=== PATIENT | female | born 1980 | race Caucasian/White ===

== ENCOUNTER 2016-08-06 | Emergency (ER) | payer MEDICAID | END 2016-08-06 23:19 | disposition left against medical advice (07) | DX: Z53.21 Procedure and treatment not carried out due to patient leaving prior to being seen by health care provider (principal) ==

== ENCOUNTER 2017-07-04 15:53 | Emergency (ER) | payer MEDICAID ==
--- NOTE | 2017-07-04 17:11 | ED Physician Documentation ---
PD HPI URI - Stated complaint Stated Complaint: FLU SYMPTOMS - Chief complaint Chief Complaint: Resp - History obtained from History obtained from: Patient - History of Present Illness Timing - onset: How many days ago (2) Timing duration: Days (2) Timing details: Abrupt onset, Still present Associated symptoms: Fever, Chills, Sweats, Nasal congestion, Sore throat, Dry cough, NVD (nausea and loose stool, no regular vomiting.) Contributing factors: Sick contact (works at [employer] at [employer]) Similar symptoms before: Has not had sx before Recently seen: Not recently seen Review of Systems Constitutional: reports: Fever, Chills, Myalgias, Fatigue Nose: reports: Congestion, Sinus pressure / pain Throat: reports: Sore throat Cardiac: denies: Chest pain / pressure, Palpitations Respiratory: reports: Cough. denies: Dyspnea GI: reports: Nausea, Diarrhea. denies: Abdominal Pain, Vomiting : denies: Dysuria, Frequency Neurologic: reports: Generalized weakness. 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 - Present Medications Home Medications: Ambulatory Orders Medication Instructions Recorded Confirmed Albuterol Sulf [Ventolin Hfa 1 - 2 puffs INH Q4HR PRN #1 inhaler 07/04/17 Inhaler] Dexamethasone [Decadron] 4 mg PO DAILY #5 tablet 07/04/17 HYDROcod/ACETAM 5/325 [[place] 5/325] 1 tab PO Q6H PRN #12 tablet 07/04/17 Ondansetron Odt [Zofran] 4 mg TL Q6H PRN #15 tablet 07/04/17 Oseltamivir [Tamiflu] 75 mg PO BID #10 capsule 07/04/17 - Allergies Allergies/Adverse Reactions: Allergies Allergy/AdvReac Type Severity Reaction Status Date / Time No Known Drug Allergies Allergy Verified 07/04/17 16:04 - Social History Does the pt smoke?: Yes Smoking Status: Current every day smoker Does the pt drink ETOH?: No Does the pt have substance abuse?: No - Immunizations Immunizations are current?: No Immunizations: TDAP >10years/unknown - POLST Patient has POLST: No PD ED PE NORMAL - Vitals Vital signs reviewed: Yes - General General: Alert and oriented X 3, No acute distress, Well developed/nourished - HEENT HEENT: Ears normal, Pharynx benign. No: Moist mucous membranes - Neck Neck: Supple, no meningeal sign, No adenopathy - Cardiac Cardiac: RRR (but tachycardic), No murmur - Respiratory Respiratory: Clear bilaterally - Abdomen Abdomen: Normal bowel sounds, Soft - Female Female : Deferred - Rectal Rectal: Deferred - Back Back: No CVA TTP - Derm Derm: Normal color, Warm and dry, No rash - Neuro Neuro: Alert and oriented X 3, No motor deficit, Normal speech Results - Vitals Vitals: Oxygen O2 Source Room air - Labs Labs: Laboratory Tests 07/04/17 16:05 Influenza A (Rapid) Negative Influenza B (Rapid) Negative Influenza Types A,B Ag - PD MEDICAL DECISION MAKING - ED course Complexity details: re-evaluated patient (feeling much better with IV fluids and meds. Still general aches. ), considered differential (sounds like flu. 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 Sick for just under 2 days. Discussed Tamiflu and she opted for it. ), d/w patient Departure - Departure Disposition: 01 Home, Self Care Clinical Impression: Flu-like symptoms Condition: Stable Record reviewed to determine appropriate education?: Yes Instructions: ED Viral Syndrome Prescriptions: Albuterol Sulf [Ventolin Hfa Inhaler] 1 - 2 puffs INH Q4HR PRN #1 inhaler PRN Reason: Shortness Of Air/Wheezing Dexamethasone [Decadron] 4 mg PO DAILY #5 tablet HYDROcod/ACETAM 5/325 [[place] 5/325] 1 tab PO Q6H PRN #12 tablet PRN Reason: Pain Ondansetron Odt [Zofran] 4 mg TL Q6H PRN #15 tablet PRN Reason: Nausea / Vomiting Oseltamivir [Tamiflu] 75 mg PO BID #10 capsule Comments: Small frequent fluids. Food as tolerated. Ondansetron if needed for nausea every 6 hours. Tylenol if needed for fevers and pains. Add hydrocodone if needed for worse pain or cough. Decadron daily for 5 days for inflammation. Use albuterol inhaler 2 puffs 4 times a day for the next 7-10 days for the cough and breathing. Rest at home off work for the next several days. Recheck if not improving over the next 4-5 days. Forms: Activity restrictions Discharge Date/Time: 07/04/17 21:03
[2017-07-04] MEDS ORDERED: ONDANSETRON 4 MG/2 ML VIAL IVP STA (17:33)
[2017-07-04] MEDS ORDERED: KETOROLAC 60 MG/2 ML VIAL IVP STA (17:33)
[2017-07-04] MEDS ORDERED: SODIUM CHLORIDE 0.9% 1,000 ML IV ONE ×2 (17:33→17:35)
[2017-07-04] MEDS ORDERED: DEXAMETHASONE 10 MG/ML VIAL IVP STA (17:34)
[2017-07-04] MEDS ORDERED: BENZONATATE 100 MG CAPSULE PO STA (17:34)
[2017-07-04] MEDS ORDERED: ALBUTEROL NEB 2.5 MG/3 ML INH STA (17:54)
[2017-07-04] MEDS ORDERED: ACETAMINOPHEN 325 MG TABLET PO STA (18:42)
[2017-07-04] MEDS ORDERED: HYDROcod/ACET 5/325 Prepack 6 PO STA (20:23)
[2017-07-04] MEDS ORDERED: MORPHINE 2 MG/ML CARPUJECT IVP STA (20:23)
[2017-07-04] MEDS ORDERED: OSELTAMIVIR 75 MG CAPSULE PO STA (20:24)
[2017-07-04] MEDS ORDERED: ONDANSETRON ODT 4 MG Prepack 2 TL PRN (20:24)
[2017-07-04 21:03] VITALS: BP 106/66
== END 2017-07-04 21:03 | disposition home or self-care (01) ==
LOC: ED 15:53
DX: R50.9 Fever, unspecified (principal); R09.81 Nasal congestion; J02.9 Acute pharyngitis, unspecified; F17.200 Nicotine dependence, unspecified, uncomplicated; R11.2 Nausea with vomiting, unspecified; R19.7 Diarrhea, unspecified; R05 Cough
CPT/HCPCS: 36415; 87275; 87276; 94640; 96361; 96374; 96375; 99283; A9270; J7613

== ENCOUNTER 2017-09-13 22:38 | Emergency (ER) | payer SELFPAY ==
[2017-09-13 23:00] LABS: BASOPHILS # (AUTO) 0.1 10^3/uL (0.0-0.1); EOSINOPHILS # (AUTO) 0.4 10^3/uL (0.0-0.7); EOSINOPHILS % (AUTO) 4.1 %; HGB - HEMOGLOBIN 13.9 g/dL (12.0-16.0); LYMPHOCYTES % (AUTO) 32.7 %; MEAN CORPUSCULAR HEMOGLOBIN 29.1 pg (27.0-31.0); MEAN CORPUSCULAR HGB CONC 34.1 g/dL (32.0-36.0); MEAN CORPUSCULAR VOLUME 85.4 fL (81.0-99.0); MEAN PLATELET VOLUME 6.9 fL (7.9-10.8); MONOCYTES # (AUTO) 0.5 10^3/uL (0.0-1.0); MONOCYTES % (AUTO) 5.8 %; NEUTROPHILS # (AUTO) 5.2 10^3/uL (1.5-6.6); NEUTROPHILS % (AUTO) 56.4 %; PLT - PLATELET COUNT 281 10^3/uL (130-450); RED BLOOD COUNT 4.76 10^6/uL (4.20-5.40); RED CELL DISTRIBUTION WIDTH 13.4 % (12.0-15.0); WHITE BLOOD COUNT 9.2 x10^3/uL (4.8-10.8)
[2017-09-13 23:14] LABS: ALBUMIN 4.2 g/dL (3.2-5.5); ALBUMIN/GLOBULIN RATIO 1.2 (1.0-2.2); BILIRUBIN,TOTAL 0.5 mg/dL (0.2-1.0); CALCIUM 9.3 mg/dL (8.5-10.3); CREATININE 0.6 mg/dL (0.4-1.0); TOTAL PROTEIN 7.6 g/dL (6.7-8.2)
--- NOTE | 2017-09-13 23:21 | XRAY Preliminary Report ---
Exam: XR CHEST 2 VIEW X-RAY IMPRESSION: 1. Patchy bilateral lower lobe opacities are noted. Differential includes atelectasis or infiltrates. 2. No effusions or pneumothorax. [facility] SITE ID: [id number]
[2017-09-13] MEDS ORDERED: oxyCOD/ACETAMIN 5 MG/325 MG TABLET PO STA (23:42)
[2017-09-13] MEDS ORDERED: AZITHROMYCIN 250 MG TABLET PO STA (23:42)
--- NOTE | 2017-09-13 23:42 | ED Physician Documentation ---
PD HPI CHEST PAIN - Stated complaint Stated Complaint: SOA/BACK PX - Chief complaint Chief Complaint: Cardiac - History obtained from History obtained from: Patient - History of Present Illness Timing - duration: Months (Intermittent for more than a month.) Timing - details: Intermittant Location: Right chest, Upper back Worsened by: Inspiration Associated symptoms: Shortness of air, Cough Similar symptoms before: Has not had sx before - Additional information Additional information: The patient is a 37-year-old female who complains of right chest and back pain that has been waxing and waning for the past month or more. It is worse with inspiration, and improves when she is lying supine. She reports nonproductive cough and shortness of breath. She denies fever. Her symptoms became worse today, prompting her emergency department visit. She denies history of similar symptoms in the past. She does smoke cigarettes. Review of Systems Constitutional: denies: Fever Eyes: denies: Irritation Ears: denies: Ear pain Nose: denies: Congestion Throat: denies: Sore throat Cardiac: reports: Chest pain / pressure. 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 - Present Medications Home Medications: Ambulatory Orders Medication Instructions Recorded Confirmed Albuterol Sulf [Ventolin Hfa 1 - 2 puffs INH Q4HR PRN #1 inhaler 07/04/17 Inhaler] Dexamethasone [Decadron] 4 mg PO DAILY #5 tablet 07/04/17 HYDROcod/ACETAM 5/325 [[place] 5/325] 1 tab PO Q6H PRN #12 tablet 07/04/17 Ondansetron Odt [Zofran] 4 mg TL Q6H PRN #15 tablet 07/04/17 Oseltamivir [Tamiflu] 75 mg PO BID #10 capsule 01/20/18 Azithromycin [Zithromax] 250 mg PO DAILY #6 tablet 09/14/17 HYDROcod/ACETAM 5/325 [[place] 5/325] 1 - 2 ea PO Q6H PRN #15 tablet 09/14/17 - Allergies Allergies/Adverse Reactions: Allergies Allergy/AdvReac Type Severity Reaction Status Date / Time No Known Drug Allergies Allergy Verified 09/13/17 22:45 - Social History Does the pt smoke?: Yes Smoking Status: Current every day smoker Does the pt drink ETOH?: No Does the pt have substance abuse?: No - Immunizations Immunizations are current?: No Immunizations: TDAP >10years/unknown - POLST Patient has POLST: No PD ED PE NORMAL - Vitals Vital signs reviewed: Yes (initially hypertensive.) - General General: Alert and oriented X 3, Well developed/nourished - HEENT HEENT: Atraumatic, EOMI, Ears normal, Pharynx benign - Neck Neck: Supple, no meningeal sign, No adenopathy, No JVD - Cardiac Cardiac: RRR, No murmur - Respiratory Respiratory: Other (Decreased breath sounds at the right base, without wheezes, rales, or rhonchi.) Results - Vitals Vitals: Vital Signs - 24 hr 09/13/17 09/13/17 09/13/17 22:40 22:50 23:48 Temperature 37.3 C 37.0 C Heart Rate 98 73 Respiratory 20 31 H Rate Blood Pressure 155/101 H 124/84 H Blood Pressure 134/87 H [Left] Blood Pressure 151/101 H [Right] O2 Saturation 98 100 09/14/17 09/14/17 00:11 00:59 Temperature 36.8 C Heart Rate 69 78 Respiratory 21 12 Rate Blood Pressure 124/77 122/74 Blood Pressure [Left] Blood Pressure [Right] O2 Saturation 100 96 Oxygen O2 Source Room air - EKG (time done) 22:44 Rate: Rate (enter#) (97) Rhythm: NSR [place]: Normal Intervals: Normal GA QRS: Normal Ischemia: Normal ST segments Computer interpretation: Agree with computer - Labs Labs: Laboratory Tests 09/13/17 09/13/17 09/13/17 22:52 22:57 22:57 WBC 9.2 RBC 4.76 Hgb 13.9 Hct 40.7 MCV 85.4 MCH 29.1 MCHC 34.1 RDW 13.4 Plt Count 281 MPV 6.9 L Neut # 5.2 Lymph # 3.0 [place] # 0.5 Eos # 0.4 Baso # 0.1 Absolute Nucleated RBC 0.02 Nucleated RBC % 0.2 D-Dimer < 200.0 L Sodium 135 Potassium 3.4 L Chloride 101 Carbon Dioxide 25 Anion Gap 9.0 BUN 13 Creatinine 0.6 Estimated GFR (MDRD) 111 Glucose 107 H Calcium 9.3 Total Bilirubin 0.5 AST 25 ALT 22 Alkaline Phosphatase 57 Total Protein 7.6 Albumin 4.2 Globulin 3.4 Albumin/Globulin Ratio 1.2 Lipase 15 L - Rads (name of study) 2-view CXR Radiology: Prelim report reviewed, EMP read contemporaneously, See rad report ( Bilateral patchy lower lobe infiltrates. No effusions or pneumothorax.) PD MEDICAL DECISION MAKING - ED course Complexity details: reviewed results, re-evaluated patient, considered differential, d/w patient, d/w family ED course: The patient's presentation is most consistent with bilateral lower lobe pneumonia, with chest x-ray revealing bilateral lower lobe patchy infiltrates. I doubt pulmonary embolus, with a normal d-dimer. Her presentation does not suggest cardiac etiology, and her electrocardiogram is normal. Treatment in the emergency department included administration of Zithromax 500 mg orally, and Percocet 1 tablet orally. She is being discharged with prescriptions for Zithromax and Percocet, 15 tablets. I discussed with her the diagnosis, antibiotic treatment and outpatient follow-up, as well as potentially worrisome signs or symptoms that should prompt reevaluation in the emergency department. I also discussed with her smoking cessation. Departure - Departure Disposition: 01 Home, Self Care Clinical Impression: Pneumonia Qualifiers: Pneumonia type: due to unspecified organism Laterality: bilateral Lung location : lower lobe of lung Qualified Code(s): J18.9 - Pneumonia, unspecified organism Chest pain Qualifiers: Chest pain type: pleurodynia Qualified Code(s): R07.81 - Pleurodynia Condition: Stable Instructions: ED Pneumonia Adult Follow-Up: [facility] [Provider Group] Prescriptions: Azithromycin [Zithromax] 250 mg PO DAILY #6 tablet HYDROcod/ACETAM 5/325 [[place] 5/325] 1 - 2 ea PO Q6H PRN #15 tablet PRN Reason: Pain Comments: Take Zithromax daily as prescribed. You can use ibuprofen, up to 800 mg 3 times daily for its anti-inflammatory effect. He can also use Vicodin as prescribed if needed for pain. Follow-up with primary physician within 2 weeks. Call to schedule an appointment. Return to the emergency department if you develop increasing difficulty breathing, or otherwise worsening symptoms. Forms: Activity restrictions Discharge Date/Time: 09/14/17 01:01
--- NOTE | 2017-09-13 23:49 | XRAY Report ---
EXAM: CHEST RADIOGRAPHY EXAM DATE: 09/13/2017 11:09 PM. CLINICAL HISTORY: Chest pain. SOB. COMPARISON: 07/11/2013. TECHNIQUE: 2 views. FINDINGS: Lungs/Pleura: Patchy interstitial densities are present at the bases, worse on the left than on the r ight. No effusions or pneumothorax. EKG leads overlie the chest. Mediastinum: Heart and mediastinal contours are unremarkable. Other: None. IMPRESSION: 1. Patchy bilateral lower lobe opacities are noted. Differential includes atelectasis or infiltrates. 2. No effusions or pneumothorax. [facility] Referring Provider Line: [phone] SITE ID: [id number]
[2017-09-14 01:00] VITALS: BP 122/74
== END 2017-09-14 01:01 | disposition home or self-care (01) ==
LOC: ED 22:38
DX: J18.9 Pneumonia, unspecified organism (principal); R07.81 Pleurodynia; F17.200 Nicotine dependence, unspecified, uncomplicated
CPT/HCPCS: 36415; 71046; 80053; 83690; 85025; 85379; 93005; 99284; A9270

== ENCOUNTER 2019-06-03 19:55 | Emergency (ER) | payer SELFPAY ==
[2019-06-03 20:01] VITALS: BP 160/85
[2019-06-03] MEDS ORDERED: oxyCODONE/ACET 5/325 Prepack 4 PO STA (20:32)
[2019-06-03] MEDS ORDERED: CLINDAMYCIN 150 MG CAPSULE PO STA (20:32)
--- NOTE | 2019-06-03 20:36 | ED Physician Documentation ---
PD HPI HEENT - Stated complaint Stated Complaint: TOOTH PX - Chief complaint Chief Complaint: Heent - History obtained from History obtained from: Patient - History of Present Illness Timing - onset: Other (Dental pain for the last 3 days or so, right mandible, a long time since she seen a dentist since she is very afraid of them. 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 - Present Medications Home Medications: Ambulatory Orders Medication Instructions Recorded Confirmed Albuterol Sulf [Ventolin Hfa 1 - 2 puffs INH Q4HR PRN #1 inhaler 07/04/17 Inhaler] HYDROcod/ACETAM 5/325 [[place] 5/325] 1 tab PO Q6H PRN #12 tablet 07/04/17 Ondansetron Odt [Zofran] 4 mg TL Q6H PRN #15 tablet 07/04/17 Oseltamivir [Tamiflu] 75 mg PO BID #10 capsule 07/04/17 dexAMETHasone [Decadron] 4 mg PO DAILY #5 tablet 07/04/17 Azithromycin [Zithromax] 250 mg PO DAILY #6 tablet 09/14/17 HYDROcod/ACETAM 5/325 [[place] 5/325] 1 - 2 ea PO Q6H PRN #15 tablet 09/14/17 Clindamycin HCl [Clindamycin 300MG 300 mg PO Q6H #40 capsule 06/03/19 CAP] Oxycodone HCl/Acetaminophen 1 - 2 each PO Q6H PRN #14 tablet 06/03/19 [Percocet 5-325 mg Tablet] diazePAM [Valium] 2 tab PO ONCE #2 tablet 06/03/19 - Allergies Allergies/Adverse Reactions: Allergies Allergy/AdvReac Type Severity Reaction Status Date / Time No Known Drug Allergies Allergy Verified 06/03/19 19:58 - Social History Does the pt smoke?: Yes Smoking Status: Current every day smoker Does the pt drink ETOH?: No Does the pt have substance abuse?: No - Immunizations Immunizations are current?: No Immunizations: TDAP >10years/unknown - POLST Patient has POLST: No PD ED PE NORMAL - Vitals Vital signs reviewed: Yes - General General: Alert and oriented X 3, No acute distress - HEENT HEENT: Other (Very mild swelling over the right mandible, no trismus, no sublingual edema. The culprit cavity is the last mandibular molar which is tender. I do not feel an abscess that can be drained now.) - Neck Neck: Supple, no meningeal sign, No bony TTP - Neuro Neuro: Alert and oriented X 3, Normal speech Results - Vitals Vitals: Vital Signs - 24 hr 06/03/19 19:58 Temperature 36.5 C Heart Rate 92 Respiratory 16 Rate Blood Pressure 160/85 H O2 Saturation 100 Oxygen O2 Source Room air PD MEDICAL DECISION MAKING - ED course ED course: 39-year-old woman with dental abscess and mild facial cellulitis. Nothing to drain at this point but discussed signs and symptoms to return for. Also given a prescription for 1 Valium prior to dental appointment so she can make it to the dentist. Departure - Departure Disposition: Home, Self Care Clinical Impression: Pain due to dental caries Condition: Good Record reviewed to determine appropriate education?: Yes Instructions: ED Tooth Pain Prescriptions: Clindamycin HCl [Clindamycin 300MG CAP] 300 mg PO Q6H #40 capsule diazePAM [Valium] 2 tab PO ONCE #2 tablet Oxycodone HCl/Acetaminophen [Percocet 5-325 mg Tablet] 1 - 2 each PO Q6H PRN #14 tablet PRN Reason: pain Comments: for followup one option would follow-up would be Dr. Quang Lomax, his office is in [place], the phone number is [phone]. It is very important that you follow-up with a dentist. When it comes to dental problems like yours, the emergency department can only offer a short-term solution to your long-term problem. A couple of low cost options for dental care include: [facility] in [place], calls [phone] for an appointment Or [facility] in [place], call [phone] for an appointment.
== END 2019-06-03 20:58 | disposition home or self-care (01) ==
LOC: ED 19:55
DX: K04.7 Periapical abscess without sinus (principal); L03.211 Cellulitis of face; K02.9 Dental caries, unspecified; F17.200 Nicotine dependence, unspecified, uncomplicated
CPT/HCPCS: 99283; A9270

== ENCOUNTER 2019-09-09 20:27 | Outpatient (CLI) | payer MEDICAID | END 2019-09-09 23:59 | disposition critical access hospital (66) | LOC: EMS 20:27 | PROVIDERS: ATTEND Surgery | DX: R06.02 Shortness of breath (principal); Z73.3 Stress, not elsewhere classified | CPT/HCPCS: A0425; A0429 ==

== ENCOUNTER 2019-09-09 20:49 | Emergency (ER) | payer MEDICAID ==
[2019-09-09] MEDS ORDERED: LORazepam 1 MG TABLET PO STA (20:53)
--- NOTE | 2019-09-09 21:18 | ED Physician Documentation ---
History of Present Illness - Stated complaint Stated Complaint: ANXIETY - Chief complaint Chief Complaint: MHE - History obtained from History obtained from: Patient - History of Present Illness Timing: Today Pain level max: 0 Pain level now: 0 - Additonal information Additional information: 39-year-old female with a longstanding history of anxiety. She feels like her anxiety has become worsened over the past few weeks. She tried taking 0.25 mg of Xanax for this today, but did not help. She feels like she is having a panic attack. 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 - Present Medications Home Medications: Ambulatory Orders Medication Instructions Recorded Confirmed Albuterol Sulf [Ventolin Hfa 1 - 2 puffs INH Q4HR PRN #1 inhaler 07/04/17 Inhaler] HYDROcod/ACETAM 5/325 [[place] 5/325] 1 tab PO Q6H PRN #12 tablet 07/04/17 Ondansetron Odt [Zofran] 4 mg TL Q6H PRN #15 tablet 07/04/17 Oseltamivir [Tamiflu] 75 mg PO BID #10 capsule 07/04/17 dexAMETHasone [Decadron] 4 mg PO DAILY #5 tablet 07/04/17 Azithromycin [Zithromax] 250 mg PO DAILY #6 tablet 09/14/17 HYDROcod/ACETAM 5/325 [[place] 5/325] 1 - 2 ea PO Q6H PRN #15 tablet 09/14/17 Clindamycin HCl [Clindamycin 300MG 300 mg PO Q6H #40 capsule 06/03/19 CAP] Oxycodone HCl/Acetaminophen 1 - 2 each PO Q6H PRN #14 tablet 06/03/19 [Percocet 5-325 mg Tablet] diazePAM [Valium] 2 tab PO ONCE #2 tablet 06/03/19 LORazepam [Ativan] 1 mg PO Q12H PRN #7 tablet 09/09/19 - Allergies Allergies/Adverse Reactions: Allergies Allergy/AdvReac Type Severity Reaction Status Date / Time No Known Drug Allergies Allergy Verified 09/09/19 20:53 - Social History Does the pt smoke?: Yes Smoking Status: Current every day smoker Does the pt drink ETOH?: No Does the pt have substance abuse?: No - Immunizations Immunizations are current?: No Immunizations: TDAP >10years/unknown - POLST Patient has POLST: No PD ED PE NORMAL - Vitals Vital signs reviewed: Yes - General General: Alert and oriented X 3, Other (Extremely anxious, tearful) - HEENT HEENT: PERRL, Moist mucous membranes - Neck Neck: Supple, no meningeal sign - Cardiac Cardiac: RRR, Strong equal pulses - Respiratory Respiratory: No respiratory distress, Clear bilaterally - Abdomen Abdomen: Soft, Non tender, Non distended - Derm Derm: Warm and dry - Neuro Neuro: Alert and oriented X 3 - Psych Psych: Normal mood, Normal affect Results - Vitals Vitals: Vital Signs - 24 hr 09/09/19 09/09/19 20:54 21:22 Temperature 36.5 C Heart Rate 93 75 Respiratory 20 22 Rate Blood Pressure 171/108 H 149/93 H O2 Saturation 100 99 Oxygen O2 Source Room air PD MEDICAL DECISION MAKING - ED course Complexity details: re-evaluated patient, considered differential, d/w patient ED course: 39-year-old female with a panic attack. Given Ativan and symptoms resolved. Feels much better. Will prescribe this for home. She is not suicidal or homicidal. Not psychotic. Patient counseled regarding signs and symptoms for which I believe and urgent re-evaluation would be necessary. Patient with good understanding of and agreement to plan and is comfortable going home at this time This document was made in part using voice recognition software. While efforts are made to proofread this document, sound alike and grammatical errors may occur. Departure - Departure Disposition: 01 Home, Self Care Clinical Impression: Anxiety Condition: Good Instructions: ED Panic Attack Follow-Up: your,doctor in 1 week [Other] Prescriptions: LORazepam [Ativan] 1 mg PO Q12H PRN #7 tablet PRN Reason: Anxiety Comments: Return if you worsen. Follow-up with your doctor for further care. Do not drive or operate heavy machinery while taking the Ativan. Crisis Line and is available to talk to someone [email or web address] is also available to chat with someone online if you prefer. There are also many resources on this website and apps for your phone to help with your mental health You can also text the word START to [phone] to chat with someome via text.
[2019-09-09 22:09] VITALS: BP 132/85
== END 2019-09-09 21:55 | disposition home or self-care (01) ==
LOC: EDUNIT# → ED 20:49
DX: F41.0 Panic disorder [episodic paroxysmal anxiety] (principal); F41.9 Anxiety disorder, unspecified; F17.200 Nicotine dependence, unspecified, uncomplicated
CPT/HCPCS: 99283; 99284; J8499

== ENCOUNTER 2020-12-23 00:41 | Emergency (ER) | payer MEDICAID ==
[2020-12-23] MEDS ORDERED: HYDROcod/ACET 5/325 Prepack 4 PO STA (01:35)
--- NOTE | 2020-12-23 01:38 | ED Physician Documentation ---
PD HPI HEENT - Stated complaint Stated Complaint: TOOTH ACHE - Chief complaint Chief Complaint: Heent - History obtained from History obtained from: Patient - History of Present Illness Timing - onset: How many months ago (2) Timing - duration: Months Timing - details: Gradual onset, Still present, Waxing and waning Location: Tooth Improves: Medication Associated symptoms: Fever, Cough, Other (has covid-19) Similar symptoms before: Diagnosis (bad tooth) Recently seen: Other (dx covid 5 days ago) - Additional information Additional information: 40-year-old female who has been diagnosed with Covid 5 days ago has developed a toothache in her left upper premolar. She has had a broken tooth there for months. She is now having some difficulty with this tooth ache and dealing with Covid at the same time. She went in to see the dentist and was not allowed into the dentist because she had Covid. She has come to the emergency department for treatment. 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 - Present Medications Home Medications: Ambulatory Orders Medication Instructions Recorded Confirmed Albuterol Sulf [Ventolin Hfa 1 - 2 puffs INH Q4HR PRN #1 inhaler 07/04/17 Inhaler] HYDROcod/ACETAM 5/325 [[place] 5/325] 1 tab PO Q6H PRN #12 tablet 07/04/17 Ondansetron Odt [Zofran] 4 mg TL Q6H PRN #15 tablet 07/04/17 Oseltamivir [Tamiflu] 75 mg PO BID #10 capsule 07/04/17 dexAMETHasone [Decadron] 4 mg PO DAILY #5 tablet 07/04/17 Azithromycin [Zithromax] 250 mg PO DAILY #6 tablet 09/14/17 HYDROcod/ACETAM 5/325 [[place] 5/325] 1 - 2 ea PO Q6H PRN #15 tablet 09/14/17 Clindamycin HCl [Clindamycin 300MG 300 mg PO Q6H #40 capsule 06/03/19 CAP] Oxycodone HCl/Acetaminophen 1 - 2 each PO Q6H PRN #14 tablet 06/03/19 [Percocet 5-325 mg Tablet] diazePAM [Valium] 2 tab PO ONCE #2 tablet 06/03/19 LORazepam [Ativan] 1 mg PO Q12H PRN #7 tablet 09/09/19 Amoxicillin 875 mg PO BID #14 tablet 12/23/20 HYDROcod/ACETAM 5/325 [[place] 5/325] 1 - 2 tablet PO Q6H PRN #14 tablet 12/23/20 - Allergies Allergies/Adverse Reactions: Allergies Allergy/AdvReac Type Severity Reaction Status Date / Time No Known Drug Allergies Allergy Verified 12/23/20 00:53 - Social History Does the pt smoke?: Yes Smoking Status: Current every day smoker Does the pt drink ETOH?: No Does the pt have substance abuse?: No - Immunizations Immunizations are current?: No Immunizations: TDAP >10years/unknown - POLST Patient has POLST: No PD ED PE NORMAL - Vitals Vital signs reviewed: Yes (hypertensiv ) - General General: Alert and oriented X 3, No acute distress, Well developed/nourished - HEENT HEENT: Atraumatic, PERRL, EOMI, Pharynx benign, Other (There is a broken left upper premolar with some surrounding tenderness. This is covered with [place].) - Neck Neck: Supple, no meningeal sign, No bony TTP - Respiratory Respiratory: No respiratory distress - Derm Derm: Normal color, Warm and dry, No rash - Extremities Extremities: No deformity, No edema - Neuro Neuro: Alert and oriented X 3, terrazzo mechanic 2-12 intact, No motor deficit, No sensory deficit, Normal speech Eye Opening: Spontaneous Motor: Obeys Commands Verbal: Oriented GCS Score: 15 - Psych Psych: Normal mood, Normal affect Results - Vitals Vitals: Vital Signs - 24 hr 12/23/20 00:53 Temperature 36.9 C Heart Rate 72 Respiratory 16 Rate Blood Pressure 133/61 H O2 Saturation 98 Oxygen O2 Source Room air PD MEDICAL DECISION MAKING - ED course Complexity details: considered differential, d/w patient ED course: 40-year-old female with COVID-19 as a tooth ache and a broken tooth cavities applied to the tooth she is prescribed amoxicillin and will provide a short course of narcotic pain reliever. Departure - Departure Disposition: 01 Home, Self Care Clinical Impression: Pain, dental Condition: Stable Instructions: ED Tooth Pain Follow-Up: [facility] [Provider Group] Prescriptions: Amoxicillin 875 mg PO BID #14 tablet HYDROcod/ACETAM 5/325 [[place] 5/325] 1 - 2 tablet PO Q6H PRN #14 tablet PRN Reason: Pain
[2020-12-23] MEDS ORDERED: AMOXICILLIN 250 MG Prepack 6 PO STA (01:50)
[2020-12-23 02:12] VITALS: BP 132/60
[2020-12-23] MEDS ORDERED: AMOXICILLIN 250 MG Prepack 6 PO SCH (06:00)
== END 2020-12-23 02:11 | disposition home or self-care (01) ==
LOC: ED 00:41
DX: K02.9 Dental caries, unspecified (principal); U07.1 COVID-19; F17.200 Nicotine dependence, unspecified, uncomplicated
CPT/HCPCS: 99282; 99283

== ENCOUNTER 2022-01-04 20:21 | Emergency (ER) | payer SELFPAY ==
[2022-01-04] MEDS ORDERED: KETOROLAC 15 MG/ML VIAL IVP STA (20:48)
[2022-01-04] MEDS ORDERED: SODIUM CHLORIDE 0.9% 1,000 ML IV STA (20:48)
[2022-01-04] MEDS ORDERED: ONDANSETRON 4 MG/2 ML VIAL IVP STA (20:48)
--- NOTE | 2022-01-04 20:50 | ED Physician Documentation ---
History of Present Illness - Stated complaint Stated Complaint: ABD PX, WEAK,NAUSEA,DIZZY - Chief complaint Chief Complaint: Allergic Rx - History obtained from History obtained from: Patient - Additonal information Additional information: Previously healthy 41-year-old woman developed lower abdominal pain headache and 1 episode of vomiting today. She had diarrhea for about a week. She denies fevers, chills or myalgias. She has a history of tubal ligation but otherwise no abdominal surgeries. 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 - Present Medications Home Medications: Ambulatory Orders Medication Instructions Recorded Confirmed Albuterol Sulf [Ventolin Hfa 1 - 2 puffs INH Q4HR PRN #1 inhaler 07/04/17 Inhaler] HYDROcod/ACETAM 5/325 [[place] 5/325] 1 tab PO Q6H PRN #12 tablet 07/04/17 Ondansetron Odt [Zofran] 4 mg TL Q6H PRN #15 tablet 07/04/17 Oseltamivir [Tamiflu] 75 mg PO BID #10 capsule 07/04/17 dexAMETHasone [Decadron] 4 mg PO DAILY #5 tablet 07/04/17 Azithromycin [Zithromax] 250 mg PO DAILY #6 tablet 09/14/17 HYDROcod/ACETAM 5/325 [[place] 5/325] 1 - 2 ea PO Q6H PRN #15 tablet 09/14/17 Clindamycin HCl [Clindamycin 300MG 300 mg PO Q6H #40 capsule 06/03/19 CAP] Oxycodone HCl/Acetaminophen 1 - 2 each PO Q6H PRN #14 tablet 06/03/19 [Percocet 5-325 mg Tablet] diazePAM [Valium] 2 tab PO ONCE #2 tablet 06/03/19 LORazepam [Ativan] 1 mg PO Q12H PRN #7 tablet 09/09/19 Amoxicillin 875 mg PO BID #14 tablet 07/11/21 HYDROcod/ACETAM 5/325 [[place] 5/325] 1 - 2 tablet PO Q6H PRN #14 tablet 12/23/20 HYDROcod/ACETAM 5/325 [[place] 5/325] 1 - 2 tab PO Q6H PRN #15 tablet 01/04/22 Ondansetron Odt [Zofran] 4 mg TL Q6H PRN #10 tablet 01/04/22 predniSONE [Deltasone] 20 mg PO [id number] #21 tab 01/04/22 - Allergies Allergies/Adverse Reactions: Allergies Allergy/AdvReac Type Severity Reaction Status Date / Time No Known Drug Allergies Allergy Verified 01/04/22 20:27 - Social History Does the pt smoke?: Yes Smoking Status: Current every day smoker Does the pt drink ETOH?: No Does the pt have substance abuse?: No - Immunizations Immunizations are current?: No Immunizations: TDAP >10years/unknown - POLST Patient has POLST: No PD ED PE NORMAL - Vitals Vital signs reviewed: Yes - General General: Alert and oriented X 3, No acute distress - HEENT HEENT: PERRL, EOMI, Other (Wearing sunglasses, But denies photophobia) - Neck Neck: Supple, no meningeal sign, No bony TTP - Cardiac Cardiac: RRR, No murmur - Respiratory Respiratory: No respiratory distress, Clear bilaterally - Abdomen Abdomen: Normal bowel sounds, Soft, Other (Mild tenderness in the right lower quadrant without surgical signs) - Back Back: No CVA TTP, No spinal TTP - Derm Derm: Normal color, Warm and dry - Extremities Extremities: No edema, No calf tenderness / cord - Neuro Neuro: Alert and oriented X 3, Normal speech Results - Vitals Vitals: Vital Signs - 24 hr 01/04/22 20:23 Temperature 36.2 C L Heart Rate 83 Respiratory 18 Rate Blood Pressure 152/93 H O2 Saturation 99 Oxygen O2 Source Room air - Labs Labs: Laboratory Tests 01/04/22 01/04/22 20:46 20:46 WBC 10.3 RBC 4.65 Hgb 13.5 Hct 40.2 MCV 86.5 MCH 29.0 MCHC 33.6 RDW 12.5 Plt Count 210 MPV 8.5 Neut # (Auto) 7.9 H Lymph # (Auto) 1.7 [place] # (Auto) 0.5 Eos # (Auto) 0.2 Baso # (Auto) 0.0 Absolute Nucleated RBC 0.00 Nucleated RBC % 0.0 Sodium 138 Potassium 3.5 Chloride 100 L Carbon Dioxide 29 Anion Gap 9.0 BUN 10 Creatinine 0.7 Estimated GFR (MDRD) 91 Glucose 110 H Calcium 9.8 Total Bilirubin 0.7 AST 15 ALT 17 Alkaline Phosphatase 56 Total Protein 7.3 Albumin 4.4 Globulin 2.9 Albumin/Globulin Ratio 1.5 Lipase 25 PD MEDICAL DECISION MAKING - ED course ED course: 41-year-old woman presents with abdominal pain. She had ongoing diarrhea. CT demonstrates fibrofatty proliferation within the terminal ileal wall and discussed more with her. She has had subacute to chronic odd bowel movements with frequent loose stools and diarrhea and on and off hematochezia. This is consistent with probably undiagnosed Crohn's disease and potentially mild current terminal ileitis. This was discussed with the patient and will start her on steroids pending primary care and GI follow-up. Departure - Departure Disposition: Home, Self Care Clinical Impression: Abdominal pain Condition: Good Record reviewed to determine appropriate education?: Yes Instructions: ED Abdominal Pain Female Non-Specific Abdominal Pain, ED Inflam Bowel Disease Crohn Follow-Up: [facility] [place] [Provider Group] [facility] [Provider Group] Prescriptions: predniSONE [Deltasone] 20 mg PO [id number] #21 tab HYDROcod/ACETAM 5/325 [[place] 5/325] 1 - 2 tab PO Q6H PRN #15 tablet PRN Reason: Pain Ondansetron Odt [Zofran] 4 mg TL Q6H PRN #10 tablet PRN Reason: Nausea / Vomiting Comments: I sent your prescriptions electronically to [facility] in [place]. You will nee d to follow-up with your primary care physician to establish care and subsequent the, as discussed you will probably need GI referral for colonoscopy with biopsies as the work-up today is most consistent with probably Crohn's disease. Return for new or worsening symptoms or if not better tomorrow for reevaluation. I am prescribing a short course of narcotic pain medication for you. These are potentially dangerous and addictive medications that should be used carefully. These medications may constipate you. Take an apcp-qbo-rnmilzg stool softener (docusate) twice daily with plenty of water while taking these medications. If you go 24 hours without a bowel movement, take nmes-alb-[id number] miralax, per package instructions. Do not drink or drive while taking these medications. If you received narcotic or sedating medications while in the emergency department, do not drive for 24 hours. Store this medication in a safe, secure place and out of reach of children. It is a violation of federal law to give or sell this medication to another person or to use in a manner other than prescribed. The ED will not refill narcotic prescriptions, including prescriptions lost or stolen. To dispose of unwanted medications: 1. [facility] at [address] in [place] has a medication drop box. They accept prescription medications (in pill form) Thursday through Thursday 9:00 a.m. to 5:00 p.m. 2. [facility] accepts prescription medications (in pill form only) for disposal year round. Call for more information. 3. Contact the [facility] for the next [facility] sponsored prescription drug collection event. , [phone], or [phone]; Note that many narcotic pain relievers also contain Tylenol/acetaminophen. Please ensure that your total dose of acetaminophen from all sources does not exceed 3 g (3000 mg) per day.
[2022-01-04 20:55] LABS: BASOPHILS % (AUTO) 0.4 %; EOSINOPHILS # (AUTO) 0.2 10^3/uL (0.0-0.7); EOSINOPHILS % (AUTO) 1.7 %; HCT - HEMATOCRIT 40.2 % (37.0-47.0); HGB - HEMOGLOBIN 13.5 g/dL (12.0-16.0); LYMPHOCYTES # (AUTO) 1.7 10^3/uL (1.5-3.5); LYMPHOCYTES % (AUTO) 16.8 %; MEAN CORPUSCULAR HGB CONC 33.6 g/dL (32.0-36.0); MEAN CORPUSCULAR VOLUME 86.5 fL (81.0-99.0); MEAN PLATELET VOLUME 8.5 fL (7.9-10.8); MONOCYTES # (AUTO) 0.5 10^3/uL (0.0-1.0); MONOCYTES % (AUTO) 4.6 %; NEUTROPHILS # (AUTO) 7.9 10^3/uL (1.5-6.6); NEUTROPHILS % (AUTO) 76.1 %; PLT - PLATELET COUNT 210 10^3/uL (130-450); RED BLOOD COUNT 4.65 10^6/uL (4.20-5.40); RED CELL DISTRIBUTION WIDTH 12.5 % (12.0-15.0); WHITE BLOOD COUNT 10.3 x10^3/uL (4.8-10.8)
[2022-01-04 21:08] LABS: ALBUMIN 4.4 g/dL (3.2-5.5); ALBUMIN/GLOBULIN RATIO 1.5 (1.0-2.2); BILIRUBIN,TOTAL 0.7 mg/dL (0.2-1.0); CALCIUM 9.8 mg/dL (8.5-10.3); CREATININE 0.7 mg/dL (0.4-1.0); POTASSIUM 3.5 mmol/L (3.5-5.0); TOTAL PROTEIN 7.3 g/dL (6.7-8.2)
--- NOTE | 2022-01-04 21:32 | CT Report ---
PROCEDURE: Abdomen/Pelvis WO INDICATIONS: RLQ pain TECHNIQUE: Noncontrast 5 mm thick sections acquired from the diaphragms to the symphysis. 5 mm coronal and sagi ttal reformats were then performed. For radiation dose reduction, the following was used: automated exposure control, adjustment of mA and/or kV according to patient size. COMPARISON: None. FINDINGS: Image quality: Limited by the absence of both oral and intravenous contrast. ABDOMEN: Lung bases: Lung bases are clear. Heart size is normal. Solid organs: Liver and spleen are normal in size. Gallbladder appears normal where well seen Panc reas is normal in contours. No adrenal nodules. Kidneys are normal in size, without hydronephrosis or nephrolithiasis. Peritoneum and bowel: Unenhanced bowel loops demonstrate normal wall thickness and caliber. No free fluid or air. Nodes and vessels: No retroperitoneal or mesenteric adenopathy by size criteria. Aorta and inferior vena cava are normal in caliber. Miscellaneous: No ventral hernias. PELVIS: Genitourinary: Bladder wall thickness is normal. Miscellaneous: No inguinal hernias or adenopathy. A normal or abnormal appendix could not be found. Note is made of fibrofatty proliferation within the wall of the terminal ileum, a relatively subtle finding that can be associated with low-grade chronic Crohn's disease. Bones: No suspicious bony lesions. No vertebral body compression fractures. IMPRESSION: A definite source of new onset right lower quadrant pain is not found and specifically a normal or ab normal appendix could not be located. Quality of visualization is limited by the absence of both oral and intravenous contrast. Note is made of fibrofatty proliferation within the terminal ileal wall, a finding that can be associated with low-grade chronic Crohn's disease. Reviewed by: Felipe Glasgow MD on 01/04/2022 9:30 PM PDT Approved by: Felipe Glasgow MD on 01/04/2022 9:30 PM PDT Station ID: [id number]
[2022-01-04] MEDS ORDERED: HYDROcod/ACET 5/325 Prepack 4 PO STA (22:01)
[2022-01-04] MEDS ORDERED: predniSONE 20 MG TABLET PO STA (22:01)
[2022-01-04] MEDS ORDERED: ONDANSETRON ODT 4 MG Prepack 2 TL STA (22:01)
[2022-01-04 22:13] LABS: BILIRUBIN,URINE NEGATIVE (NEGATIVE); GLUCOSE, URINE (UA) NEGATIVE (NEGATIVE); KETONES,URINE (UA) NEGATIVE (NEGATIVE); LEUKOCYTE ESTERASE, URINE NEGATIVE (NEGATIVE); NITRITE,URINE NEGATIVE (NEGATIVE); OCCULT BLOOD,URINE TRACE-INTA (NEGATIVE); PROTEIN,URINE NEGATIVE (NEGATIVE); UROBILINOGEN,URINE 0.2 (NORMAL) E.U./dL (NORMAL)
[2022-01-04 22:14] LABS: CLARITY,URINE CLEAR (CLEAR); HCG UR QUAL NEGATIVE
[2022-01-04 22:23] VITALS: BP 136/80
== END 2022-01-04 22:22 | disposition home or self-care (01) ==
LOC: ED 20:21
DX: R10.30 Lower abdominal pain, unspecified (principal); R19.7 Diarrhea, unspecified; F17.200 Nicotine dependence, unspecified, uncomplicated
CPT/HCPCS: 36415; 74176; 80053; 81003; 81025; 83690; 85025; 96374; 96375; 99284; J7512; 81001; 87086

== ENCOUNTER 2024-02-11 12:44 | Emergency (ER) | payer MEDICAID, OTHER ==
--- NOTE | 2024-02-11 12:55 | ED Physician Documentation ---
PD HPI CHEST PAIN - Stated complaint Stated Complaint: CHEST PX - Additional information Additional information: 43-year-old female with history of anxiety and no cardiac history presents emergency department for chest pain that started about 2 hours ago and has increased in severity. 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 Patient says that she has struggled with rinbcjj-rzpq-cyy life but is confident that this does not feel anything similar to anything she is ever experienced in the past. She is not taking any medications or supplements for anything. 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 - Present Medications Home Medications: Ambulatory Orders Medication Instructions Recorded Confirmed Albuterol Sulf [Ventolin Hfa 1 - 2 puffs INH Q4HR PRN #1 inhaler 07/04/17 Inhaler] HYDROcod/ACETAM 5/325 [[place] 5/325] 1 tab PO Q6H PRN #12 tablet 07/04/17 Ondansetron Odt [Zofran] 4 mg TL Q6H PRN #15 tablet 07/04/17 Oseltamivir [Tamiflu] 75 mg PO BID #10 capsule 07/04/17 dexAMETHasone [Decadron] 4 mg PO DAILY #5 tablet 07/04/17 Azithromycin [Zithromax] 250 mg PO DAILY #6 tablet 09/14/17 HYDROcod/ACETAM 5/325 [[place] 5/325] 1 - 2 ea PO Q6H PRN #15 tablet 09/14/17 Clindamycin HCl [Clindamycin 300MG 300 mg PO Q6H #40 capsule 06/03/19 CAP] Oxycodone HCl/Acetaminophen 1 - 2 each PO Q6H PRN #14 tablet 06/03/19 [Percocet 5-325 mg Tablet] diazePAM [Valium] 2 tab PO ONCE #2 tablet 06/03/19 LORazepam [Ativan] 1 mg PO Q12H PRN #7 tablet 09/09/19 Amoxicillin 875 mg PO BID #14 tablet 12/23/20 HYDROcod/ACETAM 5/325 [[place] 5/325] 1 - 2 tablet PO Q6H PRN #14 tablet 12/23/20 HYDROcod/ACETAM 5/325 [[place] 5/325] 1 - 2 tab PO Q6H PRN #15 tablet 01/04/22 Ondansetron Odt [Zofran] 4 mg TL Q6H PRN #10 tablet 01/04/22 predniSONE [Deltasone] 20 mg PO [id number] #21 tab 01/04/22 - Allergies Allergies/Adverse Reactions: Allergies Allergy/AdvReac Type Severity Reaction Status Date / Time No Known Drug Allergies Allergy Verified 02/11/24 12:53 - Social History Does the pt smoke?: Yes Smoking Status: Current every day smoker Does the pt drink ETOH?: No Does the pt have substance abuse?: No - Immunizations Immunizations are current?: No Immunizations: TDAP >10years/unknown - POLST Patient has POLST: No PD ED PE NORMAL - Vitals Vital signs reviewed: Yes - General General: Alert and oriented X 3, Well developed/nourished - HEENT HEENT: Atraumatic, PERRL - Neck Neck: No JVD - Cardiac Cardiac: RRR - Respiratory Respiratory: No respiratory distress, Clear bilaterally - Abdomen Abdomen: Normal bowel sounds, Soft, Non tender, Non distended, No organomegaly - Back Back: No CVA TTP - Derm Derm: Normal color, Warm and dry, No rash - Psych Psych: Normal mood Results - Vitals Vitals: Vital Signs - 24 hr 02/11/24 02/11/24 02/11/24 12:53 13:06 13:30 Temperature 36.8 C Heart Rate 83 66 Respiratory 16 14 Rate Blood Pressure 156/89 H 135/80 H Blood Pressure 145/78 H [Right] O2 Saturation 100 94 02/11/24 02/11/24 02/11/24 14:00 14:30 15:00 Temperature Heart Rate 59 L 59 L 59 L Respiratory 16 14 14 Rate Blood Pressure 114/75 126/76 121/79 Blood Pressure [Right] O2 Saturation 97 98 100 02/11/24 02/11/24 02/11/24 15:30 16:00 16:30 Temperature 36 C L Heart Rate 59 L 55 L 59 L Respiratory 14 14 15 Rate Blood Pressure 128/73 115/73 124/91 H Blood Pressure [Right] O2 Saturation 99 98 100 Oxygen O2 Source Room air - EKG (time done) 1250 EKG releavant findings:: EKG personally interpreted by author of this note. Relevant findings are: Rate: Rate (enter#) (74) Rhythm: NSR [place]: Normal Intervals: Normal IL Ischemia: Normal ST segments Computer interpretation: Agree with computer - Labs Labs: Laboratory Tests 02/11/24 02/11/24 02/11/24 12:49 12:49 16:23 WBC 5.1 RBC 5.17 Hgb 14.4 Hct 44.4 MCV 85.9 MCH 27.9 MCHC 32.4 RDW 12.9 Plt Count 242 MPV 8.7 Neut # (Auto) 2.5 Lymph # (Auto) 2.1 [place] # (Auto) 0.2 Eos # (Auto) 0.2 Baso # (Auto) 0.1 Absolute Nucleated RBC 0.00 Nucleated RBC % 0.0 Sodium 135 Potassium 3.6 Chloride 101 Carbon Dioxide 27 Anion Gap 7.0 BUN 11 Creatinine 0.7 Estimated GFR (MDRD) 90 Glucose 94 Calcium 9.9 Total Bilirubin 0.6 AST 15 ALT 13 Alkaline Phosphatase 67 Troponin I High Sens < 2.3 L < 2.3 L Total Protein 7.8 Albumin 4.9 Globulin 2.9 Albumin/Globulin Ratio 1.7 Lipase 16 - Rads (name of study) Chest x-ray Relevant Findings:: Final report received, EMP independent interpretation of test, Other (Low lung volumes) PD Medical Decision Making - ED course ED course: 43-year-old female presents emerged part for left chest pain. Exam without evidence of volume overload so doubt heart failure. EKG without signs of active ischemia. Given the timing of pain to ER presentation, delta troponin was Negative so doubt NSTEMI. Presentation not consistent with acute PE (Wells low risk PERC negative),pneumothorax (not visualized on chest xr), thoracic aortic dissection, pericarditis, tamponade, pneumonia (no infectious symptoms, clear chest xr), myocarditis (no recent illness, neg trop). HEART score: 3 so plan to discharge patient home with PMD follow up. Pt symptoms did improve. Pt left prior to formal discharge she was informed prior to leaving to follow up with her PCP Departure - Departure Disposition: 01 Home, Self Care Clinical Impression: Chest pain, Anxiety Instructions: ED Stress React, ED Chest Pain Atypical Unkn Cause, ED Panic Attack Comments: Thank you for addressing us with your care. We have completed labs, chest x- ray, EKG and we are not seeing any acute abnormalities or findings that would indicate an acute coronary syndrome. Please follow-up with your primary care provider immediately to let them know about today's ER visit to stay if there is any outpatient testing they want to continue to do/workup for your chest pain. I would strongly encourage you to take your antianxiety medications that you have at home and pursue therapy to help with your severe anxiety. Please come back to the ER if your chest pain gets any worse or does not improve or if you have any other concerning emergent symptoms. Forms: PCP List
--- NOTE | 2024-02-11 13:10 | XRAY Report ---
PROCEDURE: Chest 1V INDICATIONS: Chest Pain TECHNIQUE: One view of the chest was acquired. COMPARISON: 09/13/2018 FINDINGS: Surgical changes and devices: None. Lungs and pleura: Low lung volumes. No dense consolidation or pleural effusion Mediastinum: Normal heart size Bones and chest wall: Unremarkable IMPRESSION: Low lung volumes. No acute abnormality on this limited single view portable radiograph Reviewed by: Shankar Moseley MD on 02/11/2024 1:08 PM PDT Approved by: Shankar Moseley MD on 02/11/2024 1:08 PM PDT Station ID: [id number]
[2024-02-11] MEDS: ASPIRIN CHEW 81 MG TABLET PO STA (13:17)
[2024-02-11 13:20] LABS: BASOPHILS # (AUTO) 0.1 10^3/uL (0.0-0.1); EOSINOPHILS # (AUTO) 0.2 10^3/uL (0.0-0.7); EOSINOPHILS % (AUTO) 4.5 %; HCT - HEMATOCRIT 44.4 % (37.0-47.0); HGB - HEMOGLOBIN 14.4 g/dL (12.0-16.0); LYMPHOCYTES # (AUTO) 2.1 10^3/uL (1.5-3.5); MEAN CORPUSCULAR HEMOGLOBIN 27.9 pg (27.0-31.0); MEAN CORPUSCULAR HGB CONC 32.4 g/dL (32.0-36.0); MEAN CORPUSCULAR VOLUME 85.9 fL (81.0-99.0); MEAN PLATELET VOLUME 8.7 fL (7.9-10.8); MONOCYTES # (AUTO) 0.2 10^3/uL (0.0-1.0); MONOCYTES % (AUTO) 3.9 %; NEUTROPHILS # (AUTO) 2.5 10^3/uL (1.5-6.6); NEUTROPHILS % (AUTO) 48.4 %; PLT - PLATELET COUNT 242 10^3/uL (130-450); RED BLOOD COUNT 5.17 10^6/uL (4.20-5.40); RED CELL DISTRIBUTION WIDTH 12.9 % (12.0-15.0); WHITE BLOOD COUNT 5.1 x10^3/uL (4.8-10.8)
[2024-02-11] MEDS: KETOROLAC 30 MG/ML VIAL IVP STA (13:32)
[2024-02-11 13:34] LABS: ALBUMIN 4.9 g/dL (3.2-5.5); ALBUMIN/GLOBULIN RATIO 1.7 (1.0-2.2); ALKALINE PHOSPHATASE 67 IU/L (42-121); ALT ALANINE AMINOTRANSFERASE 13 IU/L (10-60); AST ASPARTATE AMINOTRANSFERASE 15 IU/L (10-42); BILIRUBIN,TOTAL 0.6 mg/dL (0.2-1.0); BUN - BLOOD UREA NITROGEN 11 mg/dL (6-20); CALCIUM 9.9 mg/dL (8.5-10.3); CARBON DIOXIDE - CO2 27 mmol/L (21-32); CHLORIDE 101 mmol/L (101-111); CREATININE 0.7 mg/dL (0.6-1.3); GFR - MDRD 90 (>89); GLUCOSE 94 mg/dL (74-104); LIPASE 16 U/L (11-82); POTASSIUM 3.6 mmol/L (3.5-4.5); SODIUM 135 mmol/L (135-145); TOTAL PROTEIN 7.8 g/dL (6.4-8.9)
[2024-02-11 13:35] LABS: TROPONIN I HIGH SENSITIVITY < 2.3 ng/L (2.3-14.8)
[2024-02-11] MEDS: hydrOXYzine PAMOATE 25 MG CAPSULE PO STA (14:13)
[2024-02-11 16:49] VITALS: BP 124/91; O2SAT 100
== END 2024-02-11 17:08 | disposition home or self-care (01) ==
LOC: ED 12:44
DX: R07.9 Chest pain, unspecified (principal); F41.9 Anxiety disorder, unspecified; F17.200 Nicotine dependence, unspecified, uncomplicated
CPT/HCPCS: 36415; 71045; 80053; 83690; 84484; 85025; 93005; 96374; 99284; A9270